=== PATIENT | male | born 1935 | race Asian ===

== ENCOUNTER → 2020-06-26 | Outpatient (CLI) | payer MEDICARE ==
[~2020-06-26] MED LIST: ALBU8.5H8 IH; BENZ-51 PO; CLOP75TA60 PO; DEXL30CA3 PO; FLUT1AER IH; FURO20 PO; LEVA0.634 NEB; METO25XL PO; MONT-35 PO; SIMV-260 PO; SPIRIVA IH; TIOT4MIS3 IH
[2020-06-26 11:22] VITALS: BP 141/88
== END | disposition home or self-care (01) ==
LOC: SRCNTR 11:07
PROVIDERS: ATTEND Internal Medicine
DX: J96.91 Respiratory failure, unspecified with hypoxia (principal); J45.909 Unspecified asthma, uncomplicated; R91.1 Solitary pulmonary nodule
CPT/HCPCS: G0463

== ENCOUNTER → 2020-07-02 | Outpatient (CLI) | payer MEDICARE ==
[~2020-07-02] MED LIST changes: -TIOT4MIS3 IH
== END | disposition home or self-care (01) ==
LOC: RADMN 13:27
PROVIDERS: ATTEND Internal Medicine
DX: J44.1 Chronic obstructive pulmonary disease with (acute) exacerbation (principal); J98.4 Other disorders of lung; I51.7 Cardiomegaly; I25.10 Atherosclerotic heart disease of native coronary artery without angina pectoris; I70.0 Atherosclerosis of aorta; K44.9 Diaphragmatic hernia without obstruction or gangrene; M47.814 Spondylosis without myelopathy or radiculopathy, thoracic region
CPT/HCPCS: 71250

== ENCOUNTER → 2020-08-18 | Outpatient (CLI) | payer MEDICARE ==
[~2020-08-18] MED LIST changes: -BENZ-51 PO; +BENZ-70 PO; +DILT240C97 PO; +FLUT16H NASAL
[2020-08-18 11:18] VITALS: BP 123/71
== END | disposition home or self-care (01) ==
LOC: SRCNTR 10:58
PROVIDERS: ATTEND Internal Medicine
DX: J96.11 Chronic respiratory failure with hypoxia (principal); J45.909 Unspecified asthma, uncomplicated; R91.1 Solitary pulmonary nodule
CPT/HCPCS: G0463

== ENCOUNTER → 2020-08-27 | Outpatient (CLI) | payer MEDICARE ==
[~2020-08-27] MED LIST changes: -FLUT1AER IH; -METO25XL PO; -SPIRIVA IH
== END | disposition home or self-care (01) ==
LOC: RADPV 14:28
PROVIDERS: ATTEND Internal Medicine
DX: I48.91 Unspecified atrial fibrillation (principal); R06.02 Shortness of breath; R22.40 Localized swelling, mass and lump, unspecified lower limb
CPT/HCPCS: 93306

== ENCOUNTER → 2020-09-09 | Outpatient (CLI) | payer MEDICARE ==
[~2020-09-09] VITALS: Ht 160 cm; Wt 75.3 kg
[2020-09-09 14:30] VITALS: BP 119/58
== END | disposition home or self-care (01) ==
LOC: SRCNTR 13:56
PROVIDERS: ATTEND Internal Medicine Cardiovascular Disease
DX: I10 Essential (primary) hypertension (principal); E78.5 Hyperlipidemia, unspecified; I48.0 Paroxysmal atrial fibrillation; J44.9 Chronic obstructive pulmonary disease, unspecified
CPT/HCPCS: 93005; G0463

== ENCOUNTER → 2020-11-07 | Outpatient (CLI) | payer MEDICARE ==
[~2020-11-07] VITALS: Ht 157.5 cm; Wt 76.0 kg
[2020-11-07 12:10] VITALS: BP 129/67
== END | disposition home or self-care (01) ==
LOC: SRCNTR 11:41
PROVIDERS: ATTEND Internal Medicine
DX: J45.901 Unspecified asthma with (acute) exacerbation (principal); R91.1 Solitary pulmonary nodule; J96.91 Respiratory failure, unspecified with hypoxia; Z87.01 Personal history of pneumonia (recurrent)
CPT/HCPCS: G0463; Z7500

== ENCOUNTER → 2021-06-17 | Outpatient (CLI) | payer MEDICARE, OTHER ==
[2021-06-17 10:52] VITALS: BP 101/64
== END | disposition home or self-care (01) ==
LOC: SRCNTR 09:35
PROVIDERS: ATTEND Internal Medicine
DX: J44.9 Chronic obstructive pulmonary disease, unspecified (principal); J96.11 Chronic respiratory failure with hypoxia; I10 Essential (primary) hypertension; R91.1 Solitary pulmonary nodule; I48.91 Unspecified atrial fibrillation; H91.90 Unspecified hearing loss, unspecified ear; Z86.73 Personal history of transient ischemic attack (TIA), and cerebral infarction without residual deficits
CPT/HCPCS: Q3014